=== PATIENT | female | born 1990 | race Caucasian/White ===

== ENCOUNTER 2023-12-12 11:29 | Outpatient (CLI) | payer BC, SELFPAY | END 2023-12-12 11:30 | disposition home or self-care (01) | LOC: NFLDREF 11:31 | PROVIDERS: Visit Provider Advanced Practice Midwife | DX: R30.0 Dysuria (principal) | CPT/HCPCS: 87086 ==

== ENCOUNTER 2025-01-19 14:02 | Outpatient (CLI) | payer BC, SELFPAY | END 2025-01-19 14:03 | disposition home or self-care (01) | LOC: NFLDREF 14:02 | PROVIDERS: Visit Provider Registered Nurse | DX: Z13.6 Encounter for screening for cardiovascular disorders (principal) | CPT/HCPCS: 80061 ==